=== PATIENT | female | born 1930 | race Caucasian/White ===

== ENCOUNTER 2016-07-21 14:11 | Emergency (ER) | payer MEDICARE, OTHER ==
[~2016-07-21] VITALS: Ht 167.6 cm; Wt 80.5 kg
[~2016-07-21 14:11] MED LIST: ALBU8.5H2 IH; CETI-263 PO; DILT30TA PO; ERGO400T3 PO; FERR-83 PO; GABA-504 PO; LEVO100T6 PO; MULT-1073 PO; NITR0.4T6 SL; OMEP-113 PO; SERT50TA9 PO; TRIA60LO3 TOP; WARF5TAB7 PO; [UNRECOGNIZED DRUG - CODE] PO
[2016-07-21 14:46] VITALS: BP 151/93; PULSE 59; RESP 12; O2SAT 99
[2016-07-21] MEDS ORDERED: Tetracaine 0.5% 4 mL Ophthalmic Solution ONE (15:41)
--- NOTE | 2016-07-21 15:41 | ED.REPORT ---
HPI-Headache Date of Service July 21, 2016 ED Provider: Israel Simmons MD Pt is an 85 y/o female anticoagulated on Warfarin w/ a hx of paroxysmal A-fib, HTN, presenting to the ED with family c/o gradual onset severe right temporal CHOU which began 07/15/16. The patient had a cataract surgery on 07/12/16 and since 3 days afterwards has been experiencing severe intermittent CHOU which has become persistent today. She describes this CHOU as the worst she has ever experienced. She went to today and was found to be hypertensive which is unusual for her and was subsequently sent here for imaging and further evaluation. She denies focal numbness or weakness, nausea, vomiting, vision changes, recent falls or head trauma. She reports her last INR level was approximately 2.8 or 2.9. Nursing Notes Stated Complaint: SEVERE HEADACHE Chief Complaint: Headache Nursing Notes Reviewed: Yes Allergies: Coded Allergies: codeine (Verified Adverse Reaction, Intermediate, N/V, 07/23/14) metoclopramide (Verified Adverse Reaction, Intermediate, N/V, 07/23/14) Scheduled Cetirizine HCl (Cetirizine HCl) 10 Mg Tablet 10 MG PO DAILY Diltiazem (Diltiazem) 30 Mg Tablet 30 MG PO QID Ergocalciferol (Vitamin D2) (Vitamin D) 400 Unit Tablet 400 UNIT PO DAILY Ferrous Sulfate (Ferrous Sulfate) 325 Mg Tablet 325 MG PO BID Gabapentin (Gabapentin) 400 Mg Capsule 400 MG PO TID Levothyroxine (Levothyroxine) 100 Mcg Tablet 100 MCG PO DAILY Multivits-Min/FA/Lycopene/Lut (Centrum Silver Tablet) 1 Each Tablet 1 EACH PO DAILY Omeprazole Magnesium (Omeprazole) 20 Mg Capsule.dr 20 MG PO BID Sertraline HCl (Sertraline) 50 Mg Tablet 50 MG PO DAILY Triamcinolone Acetonide (Triamcinolone Acetonide) 60 Ml Lotion 1 APPLIC TOP BID Warfarin Sodium (Warfarin Sodium) 5 Mg Tablet 5 MG PO DAILY Scheduled PRN Albuterol HFA (Proair HFA) 8.5 Gm Hfa.aer.ad 2 PUFFS IH Q4-6H PRN PRN For Shortness of Breath Miscellaneous Medications Nitroglycerin SL (Nitroglycerin SL) 0.4 Mg Tab.subl 0.4 MG SL Sodium Chloride/Nahco3/KCl/Peg (Nulytely with Flavor Packs Asya) 4,000 Ml Soln.recon 4,000 ML PO General Time Seen by MD: 15:34 Chief Complaint Worst headache of life Hx Obtained From: Patient Arrived By: Walk-in Sudden in Onset?: No Onset Occurred: 1 week ago Symptom Duration: Intermittent Location: : Temporal right Quality: Painful Severity: Current: Severe Severity: Maximum: Severe Past Medical History Past Medical History Paroxysmal atrial fibrillation anticoagulated on Warfarin Thyroid CA s/p thyroidectomy Hypertension Hx pneumonia Hx colon polyps Hx hiatal hernia GERD Anxiety Hx anemia Past Surgical History Breast lumpectomy Hysterectomy Shahid fundoplication Smoking History Never Smoker Social History Alcohol Use: Denies alcohol use Drug Use: Denies drug use Ambulatory Status Independent Review of Systems Constitutional: Denies: Chills, Fever Neurologic: Reports: Headache, Denies: Confusion, Dizziness, Focal weakness, Numbness, Problem walking, Slurred speech, Unable to speak, Weakness Complete sys rev & neg: except as marked. Physical Exam Initial Vital Signs Vital Signs (First) Date Time Temp Pulse Resp B/P Pulse Ox O2 Delivery O2 Flow Rate FiO2 07/21/16 14:46 36.2 59 12 151/93 99 Room Air Initial VS: Reviewed, Vital signs abnormal ENT: Mucous membranes moist, Conjunctiva normal, No scleral icterus Respiratory: Breath sounds normal, Clear to auscultation, No respiratory distress Cardiovascular: Regular rate & rhythm, Heart sounds normal, Intact distal pulses Abdomen / GI: Soft, Non-tender Extremities: Vascular intact, Neuro intact, No swelling, No tenderness Skin: Warm, Dry, No cyanosis Psychiatric: Mood/affect normal, Behavior normal, Normal thought content General/Constitutional: Awake, Alert, No acute distress, Well appearing, Cooperative, Not toxic appearing Head / Eyes: Atraumatic, Normocephalic, PERRL, EOMI Neck: Atraumatic, Supple, No meningismus, Full range of motion Neurologic: Oriented X3, Speech NL, No motor deficits, No sensory deficits, CN II - XII intact, Cerebellar NL, Memory NL No pronator drift Interpretation & Diagnostics Lab Results Interpretation Result Diagram: 07/21/16 1625 07/21/16 1625 Test 07/21/16 16:25 White Blood Count 8.0th/mm3 (3.8-10.1) Red Blood Count 4.59mil/mm3 (3.90-5.20) Hemoglobin 11.9g/dL (12.0-15.6) Hematocrit 36.4% (35.0-46.0) Mean Corpuscular Volume 79.3fL (81-100) Mean Corpuscular Hemoglobin 25.9pg (27.0-35.0) Mean Corpuscular Hemoglobin Concent 32.7% (32.0-37.0) Red Cell Distribution Width 16.0% (12.3-15.4) Platelet Count 326bil/L (150-400) Neutrophils (%) (Auto) 53.1% (40-74) Lymphocytes (%) (Auto) 29.6% (14-46) Monocytes (%) (Auto) 13.1% (4-12) Eosinophils (%) (Auto) 2.6% (0-5) Basophils (%) (Auto) 1.4% (0-3) Prothrombin Time 27.3sec (8.1-12.5) Prothromb Time International Ratio 2.50ratio Sodium Level 131mEq/L (134-144) Potassium Level 3.9mEq/L (3.5-5.2) Chloride Level 90mEq/L (97-108) Carbon Dioxide Level 27mmol/L (18-29) Blood Urea Nitrogen 17mg/dL (8-27) Creatinine 0.66mg/dL (0.57-1.00) Estimat Glomerular Filtration Rate 123mL/min (>59) Glucose Level 90mg/dL (60-99) Calcium Level 9.9mg/dL (8.5-10.1) Magnesium Level 1.8mg/dL (1.6-2.6) Total Bilirubin 0.5mg/dL (0.0-1.2) Aspartate Amino Transf (AST/SGOT) 28U/L (0-50) Alanine Aminotransferase (ALT/SGPT) 12U/L (0-32) Alkaline Phosphatase 81U/L (25-165) Total Protein 7.6g/dL (6.4-8.4) Albumin 4.2g/dL (3.4-5.0) ECG Interpretation ECG Interpretation: Sinus rhythm rate 57 Nonspecific IVCD No prior available for comparison Time: 16:29 Interpreted by: ED physician Normal ECG Interpretation: No acute ischemic changes CT Head Interpretation IMPRESSION: 1. Small extra-axial fluid collection along the right frontal region is suggestive of a subacute subdural hematoma and clinical correlation is recommended. There is no midline shift or mass effect. Followup CT imaging in 24 hours may be helpful to reevaluate this appearance, if indicated. 2. No acute intraparenchymal hemorrhage. 3. Mild chronic small vessel ischemic changes. Note: Findings were discussed with Dr. Simmons at 1603 hours (PST) on 07/21/16. Dictated by: Juancho Mendoza M.D. on 07/21/2016 at 14:57 Approved by: Juancho Mendoza M.D. on 07/21/2016 at 15:05 Study: Head CT no contrast Interpretation / Wet Read by: Interpret - Radiologist Re-Eval/Medical Decision Med Decision/Clinical Course Pt is an 85 y/o female anticoagulated on Warfarin w/ a hx of paroxysmal A-fib, HTN, presenting to the ED with family c/o gradual onset severe right temporal CHOU which began 07/15/16. The patient had a cataract surgery on 07/12/16 and since 3 days afterwards has been experiencing severe intermittent CHOU which has become persistent today. She describes this CHOU as the worst she has ever experienced. She went to today and was found to be hypertensive which is unusual for her and was subsequently sent here for imaging and further evaluation. She denies focal numbness or weakness, nausea, vomiting, vision changes, recent falls or head trauma. She reports her last INR level was approximately 2.8 or 2.9. Here in the emergency department the patient is hypertensive up to the 200s systolic and appears uncomfortable with severe right-sided headache. Neurologic examination is nonfocal and there is no history of trauma. Patient's pain was treated with IV hydromorphone and she was given Zofran for nausea. She reported dramatic improvement in her symptoms. CT scan was obtained as below: 1. Small extra-axial fluid collection along the right frontal region is suggestive of a subacute subdural hematoma and clinical correlation is recommended. There is no midline shift or mass effect. Followup CT imaging in 24 hours may be helpful to reevaluate this appearance, if indicated. 2. No acute intraparenchymal hemorrhage. 3. Mild chronic small vessel ischemic changes. Laboratory studies were notable as below: No leukocytosis A stable hematocrit Low MCV CMP unremarkable INR 2.5 Patient's coagulopathy was reversed with 10 mg of IV vitamin K. Serial neurologic examinations remained stable. Headache improved dramatically. Given the patient's severe hypertension I administer IV labetalol with improvement of her blood pressure into the 140s to 150s. Patient was discussed with [facility] and will be transferred for admission and further assessment by neurosurgery. She was transferred in stable condition. Source of Hx: Old records Re-Evaluation/Progress : Time of Eval: 16:16 Re-Evaluation/Progress Note: Pt rechecked. Informed pt of need for transfer for higher level of neurological care and possibility for neurosurgery for further bleeding or complications. She agrees with plan for transfer. Counseled Regarding: Diagnosis, Lab results, Need for transfer Discharge & Departure Impression: Primary Impression: Subdural hematoma Additional Impressions: Severe hypertension Anticoagulated on Coumadin Hypertensive emergency Disposition: Transfer, Acute Care Facility Transfer Requested at: 16:29 Receiving Hospital: [facility] - Dr. Krystal Marquez Transfer Accepted: Yes Transfer Accepted at: 16:29 Transfer Reason: Higher level of care (neuro) Spoke with: Emergency physician Patient Status: Stable Patient Informed: Yes Discharge Condition All VS Reviewed: Yes Condition: Stable Referrals: Jen San MD (PCP) Crit Care Except Billable Proc Time Spent: 135-164 minutes Services Performed: Patient management by me, Time spent at bedside, Reviewing test results, Reviewing imaging, Discussing patient care, Documentation in record, Time with fam/surrogate Scribe Attestation Portions of this note were transcribed by Declan Flores. I, Dr. Simmons personally performed the history, physical exam and medical decision-making; I reviewed and confirmed the accuracy of the information in the transcribed note. Signed by Santi Beckham, 07/21/16 1553 copies to: Jen San MD, Beck O MD July 21, 2016 15:41 DECLAN FLORES July 21, 2016 15:42
[2016-07-21] MEDS ORDERED: Tetracaine 0.5% 4 mL Ophthalmic Solution BOTH_EYES ONE (15:45)
--- NOTE | 2016-07-21 16:07 | DRSVH ---
PROCEDURE: CT BRAIN WITHOUT CONTRAST ([id number]) INDICATIONS: headache, high BP TECHNIQUE: Noncontrast 4.5 mm thick angled axial sections acquired from the foramen magnum to the vertex, with c oronal reformats. COMPARISON: [facility] , CT, BRAIN W/O CONTRAST, 04/21/2010, 14:06. FINDINGS: Image quality: Diagnostic. Brain: There is no acute intra-axial or extra-axial hemorrhage. However, there is asymmetric promine nce of the subdural space within the right frontal region with increased density fluid compared to th e left, suggesting either a subdural hygroma or a subacute subdural hematoma. This measures approxim ately 5 mm in thickness without midline shift or mass effect. The orbits are grossly unremarkable. No large areas of diffusely decreased attenuation are evident within the brain to suggest diffuse cer ebral edema. Scattered small foci of low attenuation within the periventricular white matter of the supratentorial brain are present. The ventricles and cortical sulci are age-appropriate. Bones: Calvarium and visualized facial bones are grossly intact. The imaged paranasal sinuses and m astoid air cells are clear. IMPRESSION: 1. Small extra-axial fluid collection along the right frontal region is suggestive of a subacute sub dural hematoma and clinical correlation is recommended. There is no midline shift or mass effect. F ollowup CT imaging in 24 hours may be helpful to reevaluate this appearance, if indicated. 2. No acute intraparenchymal hemorrhage. 3. Mild chronic small vessel ischemic changes. Note: Findings were discussed with Dr. Simmons at 1603 hours (PST) on 07/21/16. Dictated by: Juancho Mendoza M.D. on 07/21/2016 at 14:57 Approved by: Juancho Mendoza M.D. on 07/21/2016 at 15:05
[2016-07-21] MEDS ORDERED: Ondansetron 2 mg/mL 2 mL Inj IVPUSH ONE (16:30)
[2016-07-21] MEDS ORDERED: HYDROmorphone 0.5 mg/0.5 mL iSecure Syringe IVPUSH ONE (16:30)
[2016-07-21] MEDS ORDERED: Phytonadione (Adult) 10 MG in Dextrose 5%-Pha MIX 50 ML IV ONE (16:30)
[2016-07-21] MEDS ORDERED: HYDROmorphone 1 mg/mL Inj IVPUSH ONE (16:35)
[2016-07-21] MEDS ORDERED: Labetalol 5 mg/mL 4 mL Inj IVPUSH ONE (16:35)
[2016-07-21 16:44] VITALS: BP 185/112; PULSE 59; RESP 13; O2SAT 100
[2016-07-21 16:44] LABS: BASOPHILS % (AUTO) 1.4 % (0-3); EOSINOPHILS % (AUTO) 2.6 % (0-5); MONOCYTES % (AUTO) 13.1 % (4-12); Mean Corpuscular Hemoglobin 25.9 pg (27.0-35.0); Mean Corpuscular Volume 79.3 fL (81-100); NEUTROPHILS % (AUTO) 53.1 % (40-74); Platelet Count 326 bil/L (150-400)
[2016-07-21 16:58] LABS: INR 2.5 ratio
[2016-07-21 17:04] LABS: Magnesium 1.8 mg/dL (1.6-2.6)
[2016-07-21 17:16] VITALS: BP 175/86; PULSE 65; RESP 18; O2SAT 97
[2016-07-21] MEDS ORDERED: Labetalol 5 mg/mL 20 mL Inj IV ONE (17:35)
[2016-08-23] MEDS ORDERED: ASPI-973 PO (13:32)
[2016-08-23] MEDS ORDERED: DIAZ5TAB3 PO (13:32)
[2016-08-23] MEDS ORDERED: OMEP20CA11 PO (13:32)
[2016-08-23] MEDS ORDERED: HYDR25TA4 PO (13:32)
[2016-08-23] MEDS ORDERED: BENZ100C8 PO (13:32)
== END 2016-07-21 17:53 | disposition short-term general hospital (02) ==
LOC: SED 14:11
DX: S06.5X0A Traumatic subdural hemorrhage without loss of consciousness, initial encounter (principal); X58.XXXA Exposure to other specified factors, initial encounter; Y92.9 Unspecified place or not applicable; Y93.9 Activity, unspecified; Y99.9 Unspecified external cause status; I16.0 Hypertensive urgency; I10 Essential (primary) hypertension; I48.0 Paroxysmal atrial fibrillation; K21.9 Gastro-esophageal reflux disease without esophagitis; F41.9 Anxiety disorder, unspecified; Z98.49 Cataract extraction status, unspecified eye; Z79.01 Long term (current) use of anticoagulants; Z88.5 Allergy status to narcotic agent; Z88.8 Allergy status to other drugs, medicaments and biological substances
CPT/HCPCS: 36415; 70450; 80053; 83735; 85025; 85610; 93005; 96365; 96375; 99291; 99292; J1170; J2405; J3430